=== PATIENT | male | born 1970 | race African-American/Black ===

== ENCOUNTER → 2018-03-19 | Outpatient (CLI) | payer OTHER ==
--- NOTE | 2018-03-19 15:46 | RADIOLOGY REPORT (SQ) ---
EXAM DESCRIPTION: NM PARATHYROID IMAGING COMPLETED DATE/TIME: 03/19/2018 3:31 pm REASON FOR STUDY: PRIMARY HYPERPARATHYROIDISM (E21.0) E21.0 PRIMARY HYPERPARATHYROIDISM COMPARISON: None. RADIONUCLIDE AND DOSE: 20.6 millicuries Tc-99m Sestamibi. The route of agent administration: Intravenous ADDITIONAL DRUGS AND DOSES: None. TECHNIQUE: Early and delayed images of the neck acquired following radionuclide administration. LIMITATIONS: None. FINDINGS: Thyroid: Normal size. Homogeneous activity. Normal washout. No focal lesions. Parathyroid: No retained activity in the thyroid or elsewhere in the neck to indicate a parathyroid a denoma. Other: No other significant findings. IMPRESSION: NORMAL STUDY. NO EVIDENCE OF PARATHYROID ADENOMA. TECHNICAL DOCUMENTATION: JOB ID: [id number] [employer]- All Rights Reserved Reading location - IP/workstation name: [email or web address]
== END ==
LOC: RAD 10:57
PROVIDERS: ATTEND Surgery
DX: E21.0 Primary hyperparathyroidism (principal)
CPT/HCPCS: 78070; A9500; Q9969

== ENCOUNTER → 2019-03-24 | Outpatient (CLI) | payer OTHER ==
[2019-03-24 16:56] LABS: ANION GAP 9 (5-19); BLOOD UREA NITROGEN 16 mg/dL (7-20); CALCIUM 9.3 mg/dL (8.4-10.2); CARBON DIOXIDE 28 mmol/L (22-30); CHLORIDE 103 mmol/L (98-107); GLUCOSE 79 mg/dL (75-110); PHOSPHORUS 3.6 mg/dL (2.5-4.5); POTASSIUM 3.8 mmol/L (3.6-5.0)
== END ==
LOC: OD 15:58
PROVIDERS: ATTEND Surgery
DX: E21.3 Hyperparathyroidism, unspecified (principal)
CPT/HCPCS: 36415; 80048; 82306; 82330; 83735; 83970; 84100